=== PATIENT | male | born 1985 | race Caucasian/White ===

== ENCOUNTER 2018-12-31 18:53 | Emergency (ER) | payer OTHER ==
[~2018-12-31] VITALS: Ht 170.2 cm; Wt 83.9 kg
== END 2019-01-01 11:47 | disposition home or self-care (01) ==
LOC: ER 18:53 → EDBD 19:12 → ER 19:12
DX: J40 Bronchitis, not specified as acute or chronic (principal)

== ENCOUNTER 2019-05-14 21:39 | Emergency (ER) | payer OTHER ==
[~2019-05-14] VITALS: Ht 170.2 cm; Wt 83.9 kg
[2019-05-15] MEDS ORDERED: OSEL75CA PO (02:13)
[2019-05-15] MEDS ORDERED: ZYNCOF 20-400120 ML PO (02:13)
== END 2019-05-15 02:26 ==
LOC: ER 21:39
DX: J06.9 Acute upper respiratory infection, unspecified (principal)